=== PATIENT | female | born 1950 | race Caucasian/White ===

== ENCOUNTER 2019-01-27 12:04 | Inpatient (IN) ==
[2019-01-27] MEDS ORDERED: BENTYL PO PRN (12:45)
[2019-01-27] MEDS ORDERED: VENTOLIN HFA INH PRN (12:45)
[2019-01-27] MEDS ORDERED: ZOFRAN IV PRN (12:57)
[2019-01-27] MEDS: NS 1,000 ML IV SCH (13:04)
[2019-01-27] MEDS ORDERED: LABETALOL IV ONE (14:23)
[2019-01-27] MEDS ORDERED: CARDIZEM IV ONE (14:23)
[2019-01-27] MEDS ORDERED: CATAPRES-TTS-2 TD SCH (14:30)
[2019-01-27 14:37] LABS: ALB/GLOB RATIO 1.4; ALBUMIN 4.3 g/dL (3.5-5.0); CALCIUM 9.2 mg/dL (8.8-10.2); POTASSIUM 4.9 mmol/L (3.5-5.1); TOTAL BILIRUBIN 0.51 mg/dL (0.20-1.00); TOTAL PROTEIN 7.3 g/dL (6.3-8.3)
--- NOTE | 2019-01-27 15:40 | Diag Imaging Result Doc PS360 ---
EXAM: CHEST-2 VIEWS - 01/27/2019 HISTORY: hx pulmonary nodule TECHNIQUE: Chest two views COMPARISON: 12/10/2017 FINDINGS: Heart size appears upper normal and stable. There is stable calcified granuloma from old granulomatous disease at the superior segment right lower lobe. There is apparent scarring at the left lingula. There are no discrete acute consolidation, pleural effusion, or pneumothorax identified. IMPRESSION: No discrete acute abnormality. Electronically signed by Tex Gaffney 01/27/2019 3:38 PM
[2019-01-27] MEDS: ZOFRAN IV PRN ×3 (16:46→22:14)
[2019-01-27] MEDS: GLUCOPHAGE PO SCH (16:49)
[2019-01-27 21:38] LABS: URINE SOURCE VOIDED
[2019-01-27 21:43] LABS: BILIRUBIN URINE NEGATIVE (NEGATIVE); BLOOD URINE NEGATIVE (NEGATIVE); COLOR STRAW; GLUCOSE URINE NEGATIVE (NEGATIVE); KETONE URINE NEGATIVE (NEGATIVE); LEUKOCYTES URINE NEGATIVE (NEGATIVE); NITRITE URINE NEGATIVE (NEGATIVE); PROTEIN URINE TRACE mg/dL (NEGATIVE); TURBIDITY URINE CLEAR (CLEAR); UROBILINOGEN URINE NORMAL (NORMAL)
[2019-01-27 21:45] LABS: UR EPITHELIAL CELLS <10 /HPF (<10); URINE BACTERIA NEGATIVE /HPF; URINE RBC <10 /HPF (<10); URINE WBC <10 /HPF (<10)
[2019-01-27] MEDS: CYMBALTA PO SCH (22:42)
[2019-01-27] MEDS: BYSTOLIC PO SCH (22:43)
[2019-01-27] MEDS: GLUCOTROL PO SCH (22:43)
[2019-01-27] MEDS: ZYPREXA PO SCH (22:43)
[2019-01-27] MEDS: RANEXA PO SCH (22:43)
[2019-01-27] MEDS: CRESTOR PO SCH (22:43)
[2019-01-28] MEDS: NS 1,000 ML IV SCH ×3 (05:36→21:17)
[2019-01-28 06:03] LABS: CALCIUM 8.4 mg/dL (8.8-10.2); CREATININE 1.4 mg/dL (0.5-0.9); POTASSIUM 4.5 mmol/L (3.5-5.1)
[2019-01-28 06:14] LABS: AMYLASE 31 U/L (20-200); LIPASE 35 U/L (13-60)
[2019-01-28] MEDS: ZOFRAN IV PRN (08:00)
[2019-01-28] MEDS ORDERED: ASPIRIN PO SCH (09:00)
[2019-01-28] MEDS ORDERED: PRINIVIL PO SCH (09:00)
[2019-01-28] MEDS: ASPIRIN PO SCH (09:08)
[2019-01-28] MEDS: RANEXA PO SCH ×2 (09:09→21:17)
[2019-01-28] MEDS: GLUCOTROL PO SCH ×2 (09:09→21:17)
[2019-01-28] MEDS: NORVASC PO SCH (09:09)
[2019-01-28] MEDS: PROTONIX PO SCH (09:09)
[2019-01-28] MEDS: CULTURELLE PO SCH (09:09)
[2019-01-28] MEDS: GLUCOPHAGE PO SCH ×2 (09:10→16:15)
[2019-01-28] MEDS: HYDROCHLOROTHIAZIDE PO SCH (09:10)
[2019-01-28] MEDS: PRINIVIL PO SCH (09:10)
[2019-01-28] MEDS: VITAMIN B-12 PO SCH (09:10)
--- NOTE | 2019-01-28 09:59 | PROGRESS NOTE ---
DATE: 01/28/2019 VITAL SIGNS: Vital signs stable with temperature 98.9 degrees, heart rate 74, respirations 18, blood pressure 122/51 O2 saturation on 3 L nasal oxygen of 96%. The patient has home O2 that she uses p.r.n. LABORATORY: Sodium improved to 125, potassium 4.5, BUN 11, creatinine 1.4, glucose 152, calcium 8.4, amylase 31, lipase 35. TSH 0.61. ASSESSMENT: The patient is feeling much better without nausea. She ate fairly well for breakfast this morning. PLAN: Increase activity, gallbladder ultrasound tomorrow morning. Also, a repeat BMP tomorrow. cc: Az Osuna MD
[2019-01-28] MEDS: TYLENOL PO PRN (16:15)
[2019-01-28] MEDS: BYSTOLIC PO SCH (21:17)
[2019-01-28] MEDS: CRESTOR PO SCH (21:17)
[2019-01-28] MEDS: ZYPREXA PO SCH (21:17)
[2019-01-28] MEDS: CYMBALTA PO SCH (21:17)
--- NOTE | 2019-01-29 03:57 | HISTORY AND PHYSICAL ---
CHIEF COMPLAINT: Nausea, vomiting, and weakness. PRESENT ILLNESS: This is the first recent [facility] admission for this 68-year-old white female with nausea and vomiting since yesterday. She was weak and presented to [facility] this morning. She was found to have elevated potassium and low sodium at 117. She was sent to the hospital for admission. She has had no hematemesis or melena. She has had no diarrhea, and no fever. There have been no other family members with similar symptoms. She also has had mild confusion related to her hyponatremia. PAST MEDICAL HISTORY: She was hospitalized for cardiac cath a month ago, which proved normal according to the patient. She has had no abdominal surgery. PRESENT MEDICATIONS: Aspirin 81 mg 1 daily, hydrochlorothiazide 12.5 mg daily, lisinopril 20 mg 1 daily, duloxetine 60 mg 1 daily, glipizide 10 mg b.i.d., metformin 500 mg b.i.d., Bystolic 5 mg 1 daily, Ranexa 500 mg b.i.d., and Crestor 20 mg at bedtime. ALLERGIES: None known. REVIEW OF SYSTEMS: Unremarkable. She has had no recent weight change. She has had no chest pain associated with nausea. FAMILY HISTORY: Significant for hypertension and heart disease. SOCIAL HISTORY: No smoking or alcohol usage. PHYSICAL EXAMINATION: VITAL SIGNS: Temperature 98.7 degrees, heart rate 82, respirations 22, blood pressure 209/74, O2 saturation 94% on room air. T GENERAL: The patient is in moderate distress with nausea. HEENT: Pupils equal, round, and reactive to light. Pharynx benign with no erythema or exudate. NECK: Supple with no mass or lymphadenopathy. HEART: Regular in rate and rhythm with no murmur, rub or gallop. LUNGS: Clear with no rales or rhonchi. ABDOMEN: Soft with mild epigastric tenderness, but no mass. Bowel sounds are normal. EXTREMITIES: No cyanosis, clubbing, or edema. RECTAL AND GENITALIA: Deferred. IMPRESSION: Gastritis, hyponatremia, hyperkalemia, hypercholesterolemia, coronary artery disease. PLAN: Admit for further evaluation and nausea control. cc: Az Osuna MD
[2019-01-29] MEDS: TYLENOL PO PRN ×2 (06:45→15:42)
[2019-01-29 06:47] LABS: CALCIUM 8.4 mg/dL (8.8-10.2); CREATININE 1.3 mg/dL (0.5-0.9); POTASSIUM 4.5 mmol/L (3.5-5.1)
[2019-01-29] MEDS: VITAMIN B-12 PO SCH (10:06)
[2019-01-29] MEDS: PROTONIX PO SCH (10:06)
[2019-01-29] MEDS: GLUCOPHAGE PO SCH ×2 (10:06→16:54)
[2019-01-29] MEDS: RANEXA PO SCH ×3 (10:06→20:20)
[2019-01-29] MEDS: ASPIRIN PO SCH (10:06)
[2019-01-29] MEDS: CULTURELLE PO SCH (10:06)
[2019-01-29] MEDS: PRINIVIL PO SCH (10:06)
[2019-01-29] MEDS: NORVASC PO SCH (10:06)
[2019-01-29] MEDS: GLUCOTROL PO SCH ×3 (10:07→20:20)
[2019-01-29] MEDS: HYDROCHLOROTHIAZIDE PO SCH (10:07)
[2019-01-29] MEDS: NS 1,000 ML IV SCH (10:19)
--- NOTE | 2019-01-29 12:28 | Diag Imaging Result Doc PS360 ---
US ABDOMEN-COMPLETE - 01/29/2019 INDICATION: nausea and vomiting COMPARISON: 09/02/2017 FINDINGS: The liver is extremely fatty with poor penetration. No definite liver masses. There are a few small shadowing gallstones in the gallbladder. No gallbladder distention or wall thickening. No free fluid. The pancreas is obscured. The spleen and both kidneys are normal. The spleen measures 12.1 x 11.8 x 4.57 images. Common bile duct measures 5 mm. Aorta, IVC, and main portal vein are patent. IMPRESSION: 1. Small gallstones in the gallbladder. 2. Severe hepatic steatosis. Electronically signed by Fausto Wei 01/29/2019 12:25 PM
[2019-01-29] MEDS: ZOFRAN IV PRN (15:43)
[2019-01-29] MEDS: BYSTOLIC PO SCH ×2 (19:38→20:20)
[2019-01-29] MEDS: CYMBALTA PO SCH ×2 (19:38→20:20)
[2019-01-29] MEDS: ZYPREXA PO SCH ×2 (19:38→20:21)
[2019-01-29] MEDS: CRESTOR PO SCH ×2 (19:38→20:20)
--- NOTE | 2019-01-29 20:37 | PROGRESS NOTE ---
DATE: 01/29/2019 SUBJECTIVE: A 68-year-old white female admitted to the hospital on 01/27 with nausea, vomiting, weakness. Patient was seen in the [facility]. The patient has significant hyponatremia. As a result, a hospital admission was warranted. According to the family, she complains of nausea for the last 2 months. Denies of any abdominal pain. PAST MEDICAL HISTORY: Reviewed. PAST SURGICAL HISTORY: Reviewed. MEDICATIONS: Medicines were reviewed. ALLERGIES: NKDA EXAMINATION: Vital Signs: Temperature is 97.9, pulse is 64, blood pressure 137/43, room air 93%. HEENT: Within normal limits. Neck: Supple. No lymphadenopathy. Chest: Bilateral air entry. Heart: Sounds are regular. Abdomen: Belly is soft, nontender. No obvious deficits. INVESTIGATIONS: Sodium 128, potassium 4.5, chloride 90, BUN 13, creatinine 1.3. Urinalysis is clear. ASSESSMENT AND PLAN: 1. Nausea, vomiting, dehydration. Rule out gallstone disease given the history. Follow up on ultrasound of the abdomen. 2. Abnormal chest x-ray. Stable. Right upper lobe nodule. 3. Hyponatremia, continue on IV fluids. Discontinue hydrochlorothiazide. 4. Creatinine 1.3. Repeat the BMP in the morning. 5. Type 2 diabetes, on glipizide. Metformin 500 p.o. b.i.d. 6. Hypertension is stable. We will check the orthostatic blood pressure. Advanced to full liquid diet and will follow up. LEVEL OF DOCUMENTATION: 35 minutes. cc: MD Az Tracey MD MTDD
[2019-01-30] MEDS: NS 1,000 ML IV SCH ×2 (01:36→08:31)
[2019-01-30 05:46] LABS: CALCIUM 8.6 mg/dL (8.8-10.2); CREATININE 1.1 mg/dL (0.5-0.9); POTASSIUM 4.9 mmol/L (3.5-5.1)
[2019-01-30] MEDS: NORVASC PO SCH (08:32)
[2019-01-30] MEDS: GLUCOPHAGE PO SCH ×2 (08:32→17:09)
[2019-01-30] MEDS: PRINIVIL PO SCH (08:32)
[2019-01-30] MEDS: GLUCOTROL PO SCH ×2 (08:32→21:49)
[2019-01-30] MEDS: PROTONIX PO SCH (08:32)
[2019-01-30] MEDS: ASPIRIN PO SCH (08:32)
[2019-01-30] MEDS: RANEXA PO SCH ×2 (08:32→21:48)
[2019-01-30] MEDS: VITAMIN B-12 PO SCH (08:32)
[2019-01-30] MEDS: CULTURELLE PO SCH (08:32)
[2019-01-30] MEDS: TYLENOL PO PRN (08:52)
[2019-01-30] MEDS: ZOFRAN IV PRN ×2 (12:13→18:13)
--- NOTE | 2019-01-30 21:38 | PROGRESS NOTE ---
DATE: 01/30/2019 SUBJECT: The patient complains of nausea, upper abdominal discomfort. REVIEW OF SYSTEMS: None reported. EXAM: Temperature is 98 degrees, pulse 67, blood pressure is 137/39.HEENT: Within normal limits. Neck: Supple. Chest: Clear. Heart: Sounds are regular. Belly: Is soft. Negative Sin sign. No neurological deficits. INVESTIGATIONS: Sodium 135, potassium 4.9, chloride 100, BUN 9, creatinine 1.1, glucose 123. ASSESSMENT AND PLAN: 1. Hyponatremia improving. 2. Nausea, vomiting for the last 2 months. Positive gallstones. Check a HIDA scan with CCK tomorrow to rule out acalculous cholecystitis . 3. Advance the diet. 4. NPO after midnight. Cut down the IV fluids 21 mL an hour. 5. Continue present treatment with underlying medical problems diabetes, hypertension and based on HIDA scan further recommendations will be followed. LEVEL OF DOCUMENTATION: 25 minutes. cc: MD Az Tracey MD
[2019-01-30] MEDS: ZYPREXA PO SCH (21:48)
[2019-01-30] MEDS: CRESTOR PO SCH (21:48)
[2019-01-30] MEDS: BYSTOLIC PO SCH (21:48)
[2019-01-30] MEDS: CYMBALTA PO SCH (21:49)
[2019-01-31 05:36] LABS: CALCIUM 8.6 mg/dL (8.8-10.2); CREATININE 1.1 mg/dL (0.5-0.9); POTASSIUM 4.6 mmol/L (3.5-5.1)
--- NOTE | 2019-01-31 09:13 | Diag Imaging Result Doc PS360 ---
EXAM: HIDA SCAN W/ EJECTION FRACTION INDICATION: N/V TECHNIQUE: 5.8 mCi of technetium 99 Choletec was administered intravenously and images were obtained in usual fashion post administration. COMPARISON: None. FINDINGS: There is normal immediate hepatocellular activity after administration of the radiotracer. Activity is seen in the gallbladder beginning at about eight minutes post administration. No significant small bowel activity is identified after 60 minutes. 8 ounces of liquid fatty meal was then administered orally. There was prompt small bowel activity identified after administration. The calculated gallbladder ejection fraction is 55%. IMPRESSION: Essentially unremarkable HIDA scan. Electronically signed by Daniele Kenney 01/31/2019 9:10 AM
[2019-01-31] MEDS: GLUCOTROL PO SCH ×2 (09:22→21:02)
[2019-01-31] MEDS: GLUCOPHAGE PO SCH ×2 (09:22→16:53)
[2019-01-31] MEDS: TYLENOL PO PRN ×2 (09:22→16:53)
[2019-01-31] MEDS: RANEXA PO SCH ×2 (09:22→21:03)
[2019-01-31] MEDS: ASPIRIN PO SCH (09:23)
[2019-01-31] MEDS: VITAMIN B-12 PO SCH (09:23)
[2019-01-31] MEDS: PRINIVIL PO SCH (09:23)
[2019-01-31] MEDS: NS 1,000 ML IV SCH (09:23)
[2019-01-31] MEDS: CULTURELLE PO SCH (09:23)
[2019-01-31] MEDS: PROTONIX PO SCH (09:23)
[2019-01-31] MEDS: NORVASC PO SCH (09:23)
[2019-01-31] MEDS: ZOFRAN IV PRN ×2 (12:09→18:54)
--- NOTE | 2019-01-31 21:01 | PROGRESS NOTE ---
DATE: 01/31/2019 SUBJECTIVE: The patient complains of nausea every time she eats. The patient went for a HIDA scan, which came back normal. I had made 2 trips to see her, and family was at bedside. OBJECTIVE: Temperature is 98 degrees. Vital signs are stable. The patient is not orthostatic. Chest is clear. Heart sounds are regular. Belly is soft, nontender. LABORATORY DATA: SMA 7: Sodium 135, potassium 4.6, chloride 100, BUN 7, creatinine 1.1, glucose is 93. DIAGNOSTIC DATA: HIDA scan is negative. ASSESSMENT AND PLAN: 1. Hyponatremia, improving. 2. Persistent nausea. Could be gastroparesis, could be gallstone disease. We will start on Protonix and Reglan. 3. I discussed the findings with the family. If she continues to be nauseous, we will consider Gastroenterology consult. If she is better, we will send home on Reglan and Protonix. We will do outpatient workup for gastroparesis and esophagogastroduodenoscopy. We will closely monitor. 4. Discontinue intravenous fluids. Continue present treatment. Level of documentation 25 minutes. cc: MD Az Tracey MD
[2019-01-31] MEDS: CRESTOR PO SCH (21:02)
[2019-01-31] MEDS: ZYPREXA PO SCH (21:03)
[2019-01-31] MEDS: BYSTOLIC PO SCH (21:03)
[2019-01-31] MEDS: CYMBALTA PO SCH (21:03)
[2019-02-01] MEDS: TYLENOL PO PRN (06:03)
[2019-02-01 06:17] LABS: CALCIUM 8.9 mg/dL (8.8-10.2); CREATININE 1.1 mg/dL (0.5-0.9); POTASSIUM 4.6 mmol/L (3.5-5.1)
[2019-02-01] MEDS ORDERED: REGLAN PO SCH (07:00)
[2019-02-01 07:56] VITALS: BP 127/46
[2019-02-01] MEDS: GLUCOTROL PO SCH (09:36)
[2019-02-01] MEDS: VITAMIN B-12 PO SCH (09:36)
[2019-02-01] MEDS: RANEXA PO SCH (09:36)
[2019-02-01] MEDS: PROTONIX PO SCH (09:36)
[2019-02-01] MEDS: NORVASC PO SCH (09:36)
[2019-02-01] MEDS: CULTURELLE PO SCH (09:36)
[2019-02-01] MEDS: PRINIVIL PO SCH (09:36)
[2019-02-01] MEDS: ASPIRIN PO SCH (09:36)
[2019-02-01] MEDS: GLUCOPHAGE PO SCH (09:42)
--- NOTE | 2019-02-02 20:43 | DISCHARGE SUMMARY ---
ADMISSION DATE: 01/27/2019 DISCHARGE DATE: 02/01/2019 DISCHARGING DIAGNOSIS: 1. Altered mental status due to metabolic encephalopathy due to hyponatremia, sodium level is 115 due to nausea, vomiting. 2. Nausea, vomiting due to questionable gallstone disease. HIDA scan is normal. 3. Chronic obstructive pulmonary disease, abnormal chest x-ray with right upper lobe nodule stable, coronary artery disease. 4. Type 2 diabetes. 5. Hiatal hernia. 6. Hypertension. 7. 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 8. Peripheral vascular disease with a stent in the right leg. 9. Status post left carotid endarterectomy. BRIEF HISTORY: Please see the H and P that was done by Dr. Osuna. In brief she is a 68-year-old white female with above problems was admitted to the hospital on 01/27/2019 with persistent nausea, vomiting due to low sodium levels. Patient has this upper abdominal symptoms for the last 1 month. HOSPITAL COURSE: Patient was given saline, follow up hydration, electrolytes came back normal. Patient was given Reglan and Protonix. Ultrasound of the abdomen showed gallstones. Small gallstones in the gallbladder, severe hepatic steatosis and subsequent HIDA scan was essentially unremarkable. Ejection fraction was 55% and I discussed with the patient and the caregiver will continue Reglan and Protonix, if the symptoms will not improve will consider outpatient gastric emptying study and EGD before we consider remove the gallbladder. The patient is anxious to go home. At the time of discharge hemodynamics were stable, tolerating the GI soft diet very well. SMA-7, sodium 139, potassium 4.6, chloride 100, BUN 8, creatinine 1.1, glucose 114. DISCHARGE INSTRUCTIONS: Protonix 40 daily, Reglan 5 mg t.i.d. with meals, will hold the hydrochlorothiazide, lisinopril 20 daily, aspirin 81 mg daily, metformin 500 p.o. b.i.d., Bystolic 5 mg daily, glipizide 10 p.o. b.i.d., Cymbalta 90 mg at bedtime, Crestor 20 mg bedtime, Ranexa 500 p.o. b.i.d. Follow up in my office next week and initiate vaccination protocol and patient did receive a pneumococcal vaccine 13 on 12/02/2017. cc: MD Az Tracey MD
== END 2019-02-01 10:27 | disposition home or self-care (01) | DRG 640 ==
LOC: DIRADM 12:04 → 3S 12:10
PROVIDERS: ADMIT Family Medicine; ATTEND Internal Medicine
CPT/HCPCS: 71020; 71046; 76700; 78227; 80048; 80053; 81001; 82150; 83690; 84443; 94640; 94761; A9270; A9537; J2405; J7030